=== PATIENT | female | born 1970 | race Caucasian/White ===

== ENCOUNTER 2022-07-18 16:23 | Emergency (ER) | payer SELFPAY ==
[~2022-07-18 16:23] MED LIST: KEFLEX CAP 500500 MG PO; NAPROSYN500 MG PO; ONDANSETRON ODT4 MG PO
[2022-07-18 18:23] LABS: HEMOGLOBIN 14.1 gm/dl (12.3-15.3); RED BLOOD COUNT 4.4 M/UL (4.00-5.10); WHITE BLOOD COUNT 9.4 K/UL (4.5-11.0)
[2022-07-18 18:44] LABS: BUN/CREATININE RATIO 28 (0-10)
[2022-07-18] MEDS ORDERED: PYRIDIUM200 MG PO (23:42)
[2022-07-18] MEDS ORDERED: CEPHALEXIN500 M1 PO (23:42)
[2022-07-18] MEDS ORDERED: IMODIUM CAP 2 MG2 MG PO (23:49)
[2022-07-18] MEDS ORDERED: ZOFRAN ODT 4 MG4 MG SL (23:49)
== END 2022-07-19 00:18 | disposition home or self-care (01) ==
LOC: ER1 16:23
PROVIDERS: Emergency Medicine
DX: N30.00 Acute cystitis without hematuria (principal); Z88.8 Allergy status to other drugs, medicaments and biological substances
CPT/HCPCS: 80053; 81001; 83690; 85025; 99284; Q9967